=== PATIENT | female | born 1980 | race Caucasian/White ===

== ENCOUNTER 2016-05-31 23:19 | Emergency (ER) | payer BC ==
[~2016-05-31] VITALS: Ht 170.2 cm; Wt 71.0 kg
[~2016-05-31 23:19] MED LIST: CEPH500C PO; SULF800T23 PO
[2016-05-31] MEDS ORDERED: ACETAMINOPHEN 500 MG TAB PO STA (23:30)
[2016-05-31] MEDS ORDERED: IBUPROFEN 200 MG TAB PO STA (23:30)
[2016-05-31 23:32] VITALS: TEMP 37.4; O2SAT 95; Ht 170.2 cm; Wt 71.0 kg
--- NOTE | 2016-05-31 23:43 | EMERGENCY ROOM VISIT NOTE ---
History Report prepared by Kristy: Jennifer Hill Under the Supervision of: Dr. Laila Covington M.D. First contact with patient: 23:16 Chief Complaint: CHEST PAIN Stated Complaint: CHEST PAIN History of Present Illness The patient is a 35 year old who presents to the Emergency Room with complaints of an episode of chest pain occurring 1 hour [employer]. She was home tonight and went to bed. About two minutes after she laid down she began to experience chest pain and "heaviness" across her chest. She tried walking around , but again when she laid down she had stabbing pain across her chest and felt like someone was sitting on her chest. She was also experiencing shortness of breath. She denies abdominal pain. The patient was on her way to the hospital when her reports that she lost consciousness for a couple of seconds. The patient was brought to the ED by ambulance. She was given Fentanyl en route which immediately alleviated her symptoms. She was also given Zofran and aspirin en route. Source of History: patient, spouse/significant other, EMS Onset: 1 hour [employer] Position: chest Quality: stabbing, other (heaviness) Timing: other (episode) Modifying Factors (Worsening): other (laying down) Modifying Factors (Relieving): narcotics (Fentanyl) Associated Symptoms: + SOB, No abdominal pain Review of Systems See HPI for pertinent positives & negatives. A total of 10 systems reviewed and were otherwise negative. Past Medical & Surgical Medical Problems: (1) delivery delivered (2) Hypertension Family History FH: heart disease Hypertension Social History Smoking Status: Unknown if Ever Smoked Marital Status: Housing Status: lives with family Occupation Status: employed Current/Historical Medications No Active Prescriptions or Reported Meds Allergies Coded Allergies: No Known Allergies (Verified , 12/21/09) Physical Exam Vital Signs Date Time Temp Pulse Resp B/P Pulse Ox O2 Delivery O2 Flow Rate FiO2 06/01/16 04:30 71 20 111/71 97 Room Air 06/01/16 02:30 77 13 110/70 95 Room Air 06/01/16 02:00 80 13 111/73 95 Room Air 06/01/16 01:30 78 16 112/74 96 Room Air 06/01/16 01:00 76 16 117/82 95 Room Air 06/01/16 00:30 77 12 123/84 98 Room Air 06/01/16 00:00 76 15 95 Room Air 05/31/16 23:32 37.4 96 20 134/90 95 Room Air 05/31/16 23:32 95 Room Air 05/31/16 23:32 95 Room Air 05/31/16 23:30 89 Physical Exam CONSTITUTIONAL:Mild anxious distress. HEENT: No icterus, moist mucous membranes NECK: No meningismus, trachea is midline. CARDIOVASCULAR: Regular rate, normal perfusion RESPIRATORY: Unlabored breathing. Clear to auscultation. GASTROINTESTINAL: Non-tender GENITOURINARY: No flank tenderness MUSCULOSKELETAL: Full range of motion NEUROLOGIC: No acute gross focal deficits. PSYCHIATRIC: Normal affect SKIN: Normal for ethnicity. Medical Decision & Procedures ER Provider Diagnostic Interpretation: 2-view chest x-ray as interpreted by myself reveals no acute disease. A repeat ECG reveals a NSR at 74, normal axis, non-specific ST findings. Laboratory Results 05/31/16 23:00 Red Blood Count 4.78, Mean Corpuscular Volume 84.5, Mean Corpuscular Hemoglobin 28.9, Mean Corpuscular Hemoglobin Concent 34.2, Mean Platelet Volume 10.3, Neutrophils (%) (Auto) 46.6, Lymphocytes (%) (Auto) 41.3, Monocytes (%) (Auto) 10.0, Eosinophils (%) (Auto) 1.9, Basophils (%) (Auto) 0.1, Neutrophils # (Auto ) 3.22, Lymphocytes # (Auto) 2.86, Monocytes # (Auto) 0.69, Eosinophils # (Auto ) 0.13, Basophils # (Auto) 0.01 05/31/16 23:00 Test 05/31/16 23:00 06/01/16 00:25 06/01/16 03:52 White Blood Count 6.92 K/uL (4.8-10.8) Red Blood Count 4.78 M/uL (4.2-5.4) Hemoglobin 13.8 g/dL (12.0-16.0) Hematocrit 40.4 % (37-47) Mean Corpuscular Volume 84.5 fL (80-100) Mean Corpuscular Hemoglobin 28.9 pg (25-34) Mean Corpuscular Hemoglobin Concent 34.2 g/dl (32-36) Platelet Count 199 K/uL (130-400) Mean Platelet Volume 10.3 fL (7.4-10.4) Neutrophils (%) (Auto) 46.6 % Lymphocytes (%) (Auto) 41.3 % Monocytes (%) (Auto) 10.0 % Eosinophils (%) (Auto) 1.9 % Basophils (%) (Auto) 0.1 % Neutrophils # (Auto) 3.22 K/uL (1.4-6.5) Lymphocytes # (Auto) 2.86 K/uL (1.2-3.4) Monocytes # (Auto) 0.69 K/uL (0.11-0.59) Eosinophils # (Auto) 0.13 K/uL (0-0.5) Basophils # (Auto) 0.01 K/uL (0-0.2) RDW Standard Deviation 39.7 fL (36.4-46.3) RDW Coefficient of Variation 13.0 % (11.5-14.5) Immature Granulocyte % (Auto) 0.1 % Immature Granulocyte # (Auto) 0.01 K/uL (0.00-0.02) Anion Gap 9.0 mmol/L (3-11) Est Creatinine Clear Calc Drug Dose 79.6 ml/min Estimated GFR () 89.3 Estimated GFR (Non- 77.1 BUN/Creatinine Ratio 16.0 (10-20) Calcium Level 9.4 mg/dl (8.5-10.1) Prothrombin Time 10.9 SECONDS (9.0-12.0) Prothromb Time International Ratio 1.0 (0.9-1.1) Activated Partial Thromboplast Time 25.3 SECONDS (21.0-31.0) Partial Thromboplastin Ratio 1.0 D-Dimer 220 ug/L FEU (0-500) Troponin I < 0.015 ng/ml (0-0.045) Labs reviewed by ED physician. Medications Administered Medications (Trade) Dose Ordered Sig/Miranda Route Start Time Stop Time Status Last Admin Dose Admin Acetaminophen (Tylenol Tab) 1,000 mg NOW STAT PO 05/31/16 23:30 05/31/16 23:35 DC 05/31/16 23:38 1,000 MG Ibuprofen (Advil Tab) 400 mg NOW STAT PO 05/31/16 23:30 05/31/16 23:35 DC 05/31/16 23:38 400 MG ECG Indication: chest pain Rate (beats per minute): 86 Rhythm: normal sinus Findings: nonspecific-ST abn, no acute ischemic change, no ectopy ED Course 2316: Past medical records reviewed. The patient was evaluated in room B5. A complete history and physical examination was performed. 2330: Advil 400 mg PO, Tylenol 1000 mg PO 0231: I reassessed the patient and updated her on the results. She is doing well. 0439: I reassessed the patient at this time. She is feeling better and resting comfortably. I discussed the results and treatment plan with the patient. I answered all pertaining questions that she had. She expressed understanding and verbalized agreement. The patient will be discharged home. Medical Decision Differential diagnoses includes heart disease, musculoskeletal pain, PE. 35-year-old presents into the emergency department via ambulance for evaluation of acute onset of retrosternal chest pain at roughly 10:30 PM. She has no personal or family history of thromboembolic disease and has been in her otherwise normal state of health. She was given aspirin and fentanyl and route and is pain-free upon her arrival. EKG shows some nonspecific anterior changes and she was therefore kept for repeat EKG 5 hours later as well as repeat troponin both of which were within normal limits. I discussed the differential diagnosis with patient including heart disease and we agreed that given patient' s lack of risk factors as well as review of systems negative for cardiac related complaints she was safe for discharge at this time with the understanding that she return immediately for any worsening worrisome symptoms such as chest pain, shortness of breath nausea or diaphoresis. Impression Primary Impression: Chest pain Scribe Attestation The scribe's documentation has been prepared under my direction and personally reviewed by me in its entirety. I confirm that the note above accurately reflects all work, treatment, procedures, and medical decision making performed by me. Departure Information Dispostion Home / Self-Care Prescriptions No Active Prescriptions or Reported Meds Referrals Jennifer Andre M.D. (PCP) Forms HOME CARE DOCUMENTATION FORM, IMPORTANT VISIT INFORMATION Patient Instructions Chest Pain - [facility], [facility] Problem Qualifiers Primary Impression: Chest pain Chest pain type: precordial pain Qualified Codes: R07.2 - Precordial pain
[2016-05-31 23:53] LABS: BASO % 0.1 %; BASO ABS # 0.01 K/uL (0-0.2); COMPLETE YES; EOS % 1.9 %; HEMATOCRIT 40.4 % (37-47); IG% 0.1 %; LYMPH % 41.3 %; LYMPH ABS # 2.86 K/uL (1.2-3.4); MEAN CELL VOLUME 84.5 fL (80-100); MEAN CORPUSCULAR HEMOGLOBIN 28.9 pg (25-34); MEAN CORPUSCULAR HGB CONC 34.2 g/dl (32-36); MEAN PLATELET VOLUME 10.3 fL (7.4-10.4); NEUT % 46.6 %; PLATELET COUNT 199 K/uL (130-400); RED BLOOD COUNT 4.78 M/uL (4.2-5.4); WHITE BLOOD COUNT 6.92 K/uL (4.8-10.8)
[2016-06-01 00:13] LABS: BLOOD UREA NITROGEN 15 mg/dl (7-18); CALCIUM 9.4 mg/dl (8.5-10.1); CARBON DIOXIDE 28 mmol/L (21-32); CHLORIDE 107 mmol/L (98-107); CREATININE 0.95 mg/dl (0.60-1.20); GLUCOSE 124 mg/dl (70-99); POTASSIUM 3.6 mmol/L (3.5-5.1); SODIUM 144 mmol/L (136-145)
[2016-06-01 00:53] LABS: PROTHROMBIN TIME (PATIENT) 10.9 SECONDS (9.0-12.0)
[2016-06-01 04:30] VITALS: BP 111/71; PULSE 71; O2SAT 97
--- NOTE | 2016-06-01 06:06 | DIAGNOSTIC IMAGING REPORT ---
CHEST 2 VIEWS ROUTINE CLINICAL HISTORY: cp dyspnea COMPARISON STUDY: No previous studies for comparison. FINDINGS: The bones soft tissues and hemidiaphragms are normal. The cardiomediastinal silhouette is normal. The lungs are clear. The pulmonary vasculature is normal. IMPRESSION: Negative chest. Electronically signed by: Ayo Gorman M.D. 06/01/2016 6:05 AM Dictated Date/Time: 06/01/2016 6:04 AM
== END 2016-06-01 04:54 | disposition home or self-care (01) ==
LOC: C.EDB 23:19 → EDBD 23:19 → C.EDB 06-01 04:54
DX: R07.9 Chest pain, unspecified (principal); I10 Essential (primary) hypertension; Z82.49 Family history of ischemic heart disease and other diseases of the circulatory system

== ENCOUNTER → 2017-01-16 | Outpatient (CLI) | payer BC ==
[2017-01-16 17:43] LABS: HEMATOCRIT 43.6 % (37-47); MEAN CORPUSCULAR HEMOGLOBIN 28.4 pg (25-34); MEAN PLATELET VOLUME 9.9 fL (7.4-10.4); PLATELET COUNT 255 K/uL (130-400); RED BLOOD COUNT 5.07 M/uL (4.2-5.4); WHITE BLOOD COUNT 9.67 K/uL (4.8-10.8)
== END | disposition home or self-care (01) ==
LOC: C.LAB1850 16:40
PROVIDERS: ATTEND Obstetrics & Gynecology
DX: N92.0 Excessive and frequent menstruation with regular cycle (principal)

== ENCOUNTER → 2017-01-16 | Outpatient (CLI) | payer BC | END | disposition home or self-care (01) | LOC: C.PAPS 09:10 | PROVIDERS: ATTEND Obstetrics & Gynecology | DX: Z01.419 Encounter for gynecological examination (general) (routine) without abnormal findings (principal); Z11.51 Encounter for screening for human papillomavirus (HPV) ==